=== PATIENT | female | born 1945 | race Caucasian/White ===

== ENCOUNTER → 2016-06-30 | Outpatient (CLI) | payer OTHER | END | disposition home or self-care (01) | LOC: C.LABSPEC 13:45 | PROVIDERS: ATTEND Dermatology | DX: B35.3 Tinea pedis (principal) ==

== ENCOUNTER → 2017-04-15 | Outpatient (CLI) | payer OTHER ==
--- NOTE | 2017-04-15 15:32 | MAMMOGRAPHY REPORT ---
BILATERAL DIGITAL SCREENING MAMMOGRAM WITH CAD: 04/15/2017 CLINICAL HISTORY: Routine screening. Patient has no complaints. TECHNIQUE: Current study was also evaluated with a Computer Aided Detection (CAD) system. Bilateral CC and MLO views were obtained. COMPARISON: Comparison is made to exams dated: 03/16/2016 mammogram, 03/13/2015 mammogram, 4 mammogram, 02/28/2013 mammogram, 02/28/2012 mammogram, and 10/19/2011 mammogram - [facility]. BREAST COMPOSITION: There are scattered areas of fibroglandular density in both breasts. FINDINGS: No suspicious masses, calcifications, or areas of architectural distortion are noted in ei ther breast. There has been no significant interval change compared to prior exams. IMPRESSION: ACR BI-RADS CATEGORY 1: NEGATIVE There is no mammographic evidence of malignancy. A 1 year screening mammogram is recommended. The pa tient will receive written notification of the results. Approximately 10% of breast cancers are not detected with mammography. A negative mammographic report should not delay biopsy if a clinically suggestive mass is present. Arina Judge M.D. ah/:04/15/2017 14:40:22 Health Insurance Adjuster: Aliza MARTINEZ(Paul)([place]), [facility] letter sent: Normal 1/2 BI-RADS Code: ACR BI-RADS Category 1: Negative
== END | disposition home or self-care (01) ==
LOC: C.MAMM 13:29
PROVIDERS: ATTEND Internal Medicine
DX: Z12.31 Encounter for screening mammogram for malignant neoplasm of breast (principal)

== ENCOUNTER 2017-07-14 19:55 | Inpatient (IN) | payer OTHER ==
[~2017-07-14] VITALS: Ht 152.4 cm; Wt 55.4 kg
[2017-07-14] MEDS ORDERED: IBUPROFEN 200 MG TAB PO STA (20:48)
[2017-07-14] MEDS ORDERED: ACETAMINOPHEN 325 MG TAB PO ONE (21:00)
--- NOTE | 2017-07-14 21:14 | DIAGNOSTIC IMAGING REPORT ---
CHEST ONE VIEW PORTABLE CLINICAL HISTORY: Sepsis dyspnea COMPARISON STUDY: No previous studies for comparison. FINDINGS: Small left basilar parenchymal infiltrate. Minimal interstitial infiltrate right base. Lungs otherwise appear clear. Diaphragms are smooth. No significant cardiac enlargement. IMPRESSION: Small bibasilar parenchymal infiltrates. The above report was generated using voice recognition software. It may contain grammatical, syntax or spelling errors. Electronically signed by: Mane Beck M.D. 07/14/2017 9:13 PM Dictated Date/Time: 07/14/2017 9:12 PM
[2017-07-14] MEDS ORDERED: LEVAQUIN 750MG / 150ML D5W IV STA (21:17)
[2017-07-14 21:29] LABS: INR 0.9 (0.9-1.1); PTT PATIENT 24.9 SECONDS (21.0-31.0)
[2017-07-14] MEDS ORDERED: AMOX875T3 PO (21:35)
[2017-07-14] MEDS ORDERED: PARO1TAB27 PO (21:36)
[2017-07-14] MEDS ORDERED: MULT-506 PO (21:36)
[2017-07-14 21:40] LABS: ALBUMIN 3.3 gm/dl (3.4-5.0); ALT/SGPT 34 U/L (12-78); BLOOD UREA NITROGEN 14 mg/dl (7-18); CALCIUM 8.3 mg/dl (8.5-10.1); CARBON DIOXIDE 27 mmol/L (21-32); CREATININE 0.74 mg/dl (0.60-1.20); GLUCOSE 133 mg/dl (70-99); POTASSIUM 3.6 mmol/L (3.5-5.1); SODIUM 136 mmol/L (136-145)
[2017-07-14 21:45] LABS: ALKALINE PHOSPHATASE 69 U/L (45-117); AST/SGOT 28 U/L (15-37)
[2017-07-14 21:55] LABS: HEMATOCRIT 40.7 % (37-47); HEMOGLOBIN 13.5 g/dL (12.0-16.0); MEAN CORPUSCULAR HEMOGLOBIN 31.2 pg (25-34); MEAN CORPUSCULAR HGB CONC 33.2 g/dl (32-36); MEAN PLATELET VOLUME 9.8 fL (7.4-10.4); PLATELET COUNT 202 K/uL (130-400); RED CELL DISTRIBUTION WIDTH CV 12.8 % (11.5-14.5); RED CELL DISTRIBUTION WIDTH SD 44.3 fL (36.4-46.3); WHITE BLOOD COUNT 13.99 K/uL (4.8-10.8)
--- NOTE | 2017-07-14 22:11 | EMERGENCY ROOM VISIT NOTE ---
History Report prepared by David: Koko Alcazar Under the Supervision of: Dr. Blake Garza M.D. First contact with patient: 20:42 Chief Complaint: FLU LIKE SX Stated Complaint: FLU History of Present Illness The patient is a 71 year old female who presents to the Emergency Room with complaints of persistent flu-like symptoms since 1600 today. She states that she has been congested with a runny nose and cough for two days. She was seen by her PCP yesterday and prescribed Amoxicillin. She took the first dose at 1600 today and began to have body aches shortly after taking the medication. She reports a headache as well. She states the cough is causing chest tightness and shortness of breath. She thinks she might have been exposed to the flu while in the waiting room at her doctor's office. She notes a fever and took Tylenol at 1400 today. She denies any vomiting or rash. She denies any underlying medical problems. She is not normally on at home oxygen. She denies any urinary symptoms. Source of History: patient Onset: 1600 today Position: other (body) Quality: ache Timing: other (persistent) Associated Symptoms: + fevers, + headache, + cough, + chest pain (chest tightness), + SOB, No vomiting, No urinary symptoms, No rash Note: She notes runny nose and congestion. Review of Systems See HPI for pertinent positives & negatives. A total of 10 systems reviewed and were otherwise negative. Past Medical & Surgical Medical Problems: (1) ARDS (adult respiratory distress syndrome) (2) Pneumothorax Surgical Problems: (1) H/O tubal ligation Family History Cancer Diabetes mellitus Heart disease Hypertension Social History Smoking Status: Current Some Day Smoker Smokeless Tobacco Use: No Alcohol Use: none Drug Use: none Marital Status: single Housing Status: lives alone Occupation Status: unemployed Current/Historical Medications Scheduled Amoxicillin (Amoxil), 875 MG PO Q12 Multivitamin (Multivitamin), 1 TAB PO DAILY Paroxetine (Paxil), 20 MG PO DAILY Allergies Coded Allergies: No Known Allergies (Verified , 07/14/17) Physical Exam Vital Signs Date Time Temp Pulse Resp B/P (MAP) Pulse Ox O2 Delivery O2 Flow Rate FiO2 07/14/17 21:23 95 18 124/58 95 Nasal Cannula 2.0 07/14/17 20:53 95 Nasal Cannula 2.0 07/14/17 20:49 85 Room Air 3/22/18 20:49 95 Nasal Cannula 2.0 07/14/17 20:43 106 07/14/17 19:58 37.9 119 20 128/57 91 Room Air Physical Exam Constitutional: Vital signs reviewed. Eyes: Pupils are equal round reactive to light. Conjunctiva are noninjected. ENT: Pharynx is clear without erythema or exudate. Mucous membranes are moist. Neck supple without meningeal signs. Respiratory: Clear to auscultation bilaterally. Breath sounds are equal bilaterally. Cardiovascular: Tachycardic rate with normal rhythm. No rubs or gallops. Heart rate of 101. GI: Soft, nondistended and nontender. Bowel sounds are present. Musculoskeletal: No peripheral edema. No lower extremity tenderness. Integumentary: No cyanosis. Neurological: The patient is awake and alert. No focal deficits. Psychiatric: Normal affect. Medical Decision & Procedures ER Provider Diagnostic Interpretation: Radiology results as stated below per my review and the radiologist's interpretation: CHEST ONE VIEW PORTABLE CLINICAL HISTORY: Sepsis dyspnea COMPARISON STUDY: No previous studies for comparison. FINDINGS: Small left basilar parenchymal infiltrate. Minimal interstitial infiltrate right base. Lungs otherwise appear clear. Diaphragms are smooth. No significant cardiac enlargement. IMPRESSION: Small bibasilar parenchymal infiltrates. The above report was generated using voice recognition software. It may contain grammatical, syntax or spelling errors. Electronically signed by: Mane Beck M.D. 07/14/2017 9:13 PM Dictated Date/Time: 07/14/2017 9:12 PM Laboratory Results 07/14/17 21:02 Red Blood Count 4.33, Mean Corpuscular Volume 94.0, Mean Corpuscular Hemoglobin 31.2, Mean Corpuscular Hemoglobin Concent 33.2, Mean Platelet Volume 9.8 07/14/17 21:02 Test 07/14/17 20:48 07/14/17 21:02 07/14/17 21:20 White Blood Count 13.99 K/uL (4.8-10.8) Red Blood Count 4.33 M/uL (4.2-5.4) Hemoglobin 13.5 g/dL (12.0-16.0) Hematocrit 40.7 % (37-47) Mean Corpuscular Volume 94.0 fL (80-100) Mean Corpuscular Hemoglobin 31.2 pg (25-34) Mean Corpuscular Hemoglobin Concent 33.2 g/dl (32-36) Platelet Count 202 K/uL (130-400) Mean Platelet Volume 9.8 fL (7.4-10.4) RDW Standard Deviation 44.3 fL (36.4-46.3) RDW Coefficient of Variation 12.8 % (11.5-14.5) Prothrombin Time 9.4 SECONDS (9.0-12.0) Prothromb Time International Ratio 0.9 (0.9-1.1) Activated Partial Thromboplast Time 24.9 SECONDS (21.0-31.0) Partial Thromboplastin Ratio 1.0 Anion Gap 5.0 mmol/L (3-11) Est Creatinine Clear Calc Drug Dose 52.9 ml/min Estimated GFR () 93.2 Estimated GFR (Non- 80.4 BUN/Creatinine Ratio 18.3 (10-20) Calcium Level 8.3 mg/dl (8.5-10.1) Total Bilirubin 0.5 mg/dl (0.2-1) Aspartate Amino Transf (AST/SGOT) 28 U/L (15-37) Alanine Aminotransferase (ALT/SGPT) 34 U/L (12-78) Alkaline Phosphatase 69 U/L (45-117) Troponin I < 0.015 ng/ml (0-0.045) Total Protein 7.0 gm/dl (6.4-8.2) Albumin 3.3 gm/dl (3.4-5.0) Globulin 3.7 gm/dl (2.5-4.0) Albumin/Globulin Ratio 0.9 (0.9-2) Urine Color YELLOW Urine Appearance CLEAR (CLEAR) Urine pH 8.5 (4.5-7.5) Urine Specific [place] 1.023 (1.000-1.030) Urine Protein NEG (NEG) Urine Glucose (UA) NEG (NEG) Urine Ketones TRACE (NEG) Urine Occult Blood NEG (NEG) Urine Nitrite NEG (NEG) Urine Bilirubin NEG (NEG) Urine Urobilinogen NEG (NEG) Urine Leukocyte Esterase NEG (NEG) Urine WBC (Auto) 1-5 /hpf (0-5) Urine RBC (Auto) 0-4 /hpf (0-4) Urine Hyaline Casts (Auto) 0 /lpf (0-5) Urine Epithelial Cells (Auto) 10-20 /lpf (0-5) Urine Bacteria (Auto) NEG (NEG) Laboratory results as reviewed by me. Medications Administered Medications (Trade) Dose Ordered Sig/Thad Route Start Time Stop Time Status Last Admin Dose Admin Acetaminophen (Tylenol Tab) 650 mg ONE ONCE PO 07/14/17 21:00 07/14/17 21:01 DC 07/14/17 20:58 650 MG Ibuprofen (Advil Tab) 400 mg NOW STAT PO 07/14/17 20:48 07/14/17 20:50 DC 07/14/17 20:57 400 MG Levofloxacin (Levaquin / D5W) 750 mg NOW STAT IV 07/14/17 21:17 07/14/17 21:18 DC 07/14/17 21:30 750 MG ECG Per My Interpretation Indication: SOB/dyspnea Rate (beats per minute): 108 Rhythm: sinus tachycardia Findings: no ectopy (No PVC), other (No ST elevation) ED Course 2042: The patient was evaluated in room C112B. A complete history and physical exam was performed. 2047: Ordered Ibuprofen 400 mg PO 2099: Ordered Tylenol 650 mg PO 2116: Ordered Levofloxacin 750 mg IV 2117: I reassessed the patient at this time. She is resting comfortably. I discussed the results and treatment plan with the patient. I answered all pertaining questions that she had. She expressed understanding and verbalized agreement. The patient will be further evaluated. 2126: I spoke with Dr. Burgess, [facility] hospitalist. We discussed the patient's case. The patient will be evaluated by the [facility] for further management. Medical Decision This is a 71-year-old female who presents with flulike symptoms. Differential diagnosis includes influenza, pneumonia, bronchitis, viral syndrome, pleural effusion. I did perform a limited focused review of portions of the patient's old chart on the electronic medical record. The patient has had no recent pertinent visits to this hospital. I did evaluate the patient as noted above. Patient is presenting with flulike symptoms today. She did have a head cold 2 days prior to think she was exposed to flu at her doctor's office yesterday. She was just started on amoxicillin today. IV access was established. The patient was placed on a continuous [employer]. Her O2 saturation is 85% on room air. She was placed on 2 L of oxygen via nasal cannula and her O2 saturation went up to 95%. She did feel better. I did order and personally review the patient's 12-lead EKG and chest x -ray as described above. Chest x-ray demonstrates bibasilar infiltrates. Blood cultures were ordered. I did treat the patient with Levaquin IV. She was also given Tylenol and Motrin for her fever. I did order and review the patient's blood work as noted in the electronic medical record. Her white blood cell count is elevated. Lactic acid is not elevated. I did order a PCR influenza which is currently pending. I did discuss the case with the hospitalist service and case manager specialist. Medication Reconcilliation Current Medication List: was personally reviewed by me Blood Pressure Screening Patient's blood pressure: Elevated blood pressure Blood pressure disposition: Elevated BP felt to be situational Consults Time Called: 2120 Consulting Physician: MISSY Dee hospitalist Returned Call: 2126 I spoke with MISSY Dee hospitalist. We discussed the patient's case. The patient will be evaluated by the [facility] for further management. Impression Primary Impression: Pneumonia of both lower lobes Additional Impression: Hypoxia Scribe Attestation The scribe's documentation has been prepared under my direct and personally reviewed by me in its entirety. I confirm that the note above accurately reflects all work, treatment, procedures, and medical decision making performed by me. Departure Information Dispostion Being Evaluated By Hospitalist Referrals Morales Russo M.D. (PCP) Patient Instructions My [facility] Problem Qualifiers Primary Impression: Pneumonia of both lower lobes Pneumonia type: due to unspecified organism Qualified Codes: J18.1 - Lobar pneumonia, unspecified organism
--- NOTE | 2017-07-14 22:12 | History and Physical ---
History & Physical Date & Time of Service: Jul 14, 2017 at 22:03 Chief Complaint: FLU Primary Care Physician: Morales Russo M.D. History of Present Illness Source: patient, hospital records 71 year old female with history of PNA and ARDS presents to the ER with cough and chest tightness. She has had a head hold for the last 5-6 days. She went to see her PCP yesterday, who prescribed amoxicillin for sinusitis. Patient just started the regimen and has only taken one dose but was experiencing nausea with it. Her cough worsened today and she had fevers and chills, felt myalgias and fatigued and was experiencing chest tightness. She has been taking ibuprofen for fever and aches and pains. She came to the ER concerned, given her previous history of ARDS. She denies sore throat, nasal congestion, rhinorrhea. Patient did not particularly feel SOB, but admits to resting the entire day. No CP, palpitations, heart racing. No N/V although appetite has been diminished x 2 days. No issues voiding or changes in BM. No cardiac history or diabetes. No h/o asthma. Patient is current smoker 1 pack/week, although she used to smoke more heavily previously. She did not get her influenza vaccine this year. In the ER patient was noted to be hypoxic. Labs revealed leukocytosis. Patient found to positive for influenza. CXR showed bilateral PNA. ROS unremarkable except as above. Past Medical/Surgical History Medical Problems: (1) ARDS (adult respiratory distress syndrome) (2) Pneumothorax Surgical Problems: (1) H/O tubal ligation Family History Cancer Diabetes mellitus Heart disease Hypertension unremarkable Social History Smoking Status: Current Some Day Smoker Smokeless Tobacco Use: No Alcohol Use: socially Drug Use: none Immunizations History of Influenza Vaccine: Unknown History of Tetanus Vaccine?: Unknown History of Pneumococcal: Unknown History of Hepatitis B Vaccine: Unknown Allergies Coded Allergies: No Known Allergies (Verified , 07/14/17) Home Medications Scheduled Levofloxacin (Levaquin), 500 MG PO DAILY Multivitamin (Multivitamin), 1 TAB PO DAILY Oseltamivir Phosphate (Tamiflu), 1 CAP PO BID Paroxetine (Paxil), 20 MG PO DAILY Physical Exam Vital Signs Date Time Temp Pulse Resp B/P (MAP) Pulse Ox O2 Delivery O2 Flow Rate FiO2 07/14/17 21:23 95 18 124/58 95 Nasal Cannula 2.0 07/14/17 20:53 95 Nasal Cannula 2.0 07/14/17 20:49 85 Room Air 07/14/17 20:49 95 Nasal Cannula 2.0 07/14/17 20:43 106 07/14/17 19:58 37.9 119 20 128/57 91 Room Air General Appearance: WD/WN, no apparent distress, + pertinent finding (NC in situ) Head: normocephalic, atraumatic Eyes: normal inspection, sclerae normal ENT: hearing grossly normal, pharynx normal Neck: supple, no adenopathy Respiratory/Chest: normal breath sounds, no respiratory distress, no accessory muscle use Cardiovascular: regular rate, rhythm, no murmur, normal peripheral pulses Abdomen/GI: normal bowel sounds, non tender, soft Back: normal inspection, no CVA tenderness Extremities/Musculoskelatal: no calf tenderness, no pedal edema Neurologic/Psych: alert, normal mood/affect, oriented x 3 Skin: normal color, warm/dry, no rash Diagnostics Laboratory Results Results Past 24 Hours Test 07/14/17 20:48 07/14/17 21:02 07/14/17 21:20 Range/Units White Blood Count 13.99 4.8-10.8 K/uL Red Blood Count 4.33 4.2-5.4 M/uL Hemoglobin 13.5 12.0-16.0 g/dL Hematocrit 40.7 37-47 % Mean Corpuscular Volume 94.0 80-100 fL Mean Corpuscular Hemoglobin 31.2 25-34 pg Mean Corpuscular Hemoglobin Concent 33.2 32-36 g/dl Platelet Count 202 130-400 K/uL Mean Platelet Volume 9.8 7.4-10.4 fL RDW Standard Deviation 44.3 36.4-46.3 fL RDW Coefficient of Variation 12.8 11.5-14.5 % Prothrombin Time 9.4 9.0-12.0 SECONDS Prothromb Time International Ratio 0.9 0.9-1.1 Activated Partial Thromboplast Time 24.9 21.0-31.0 SECONDS Partial Thromboplastin Ratio 1.0 Sodium Level 136 136-145 mmol/L Potassium Level 3.6 3.5-5.1 mmol/L Chloride Level 103 98-107 mmol/L Carbon Dioxide Level 27 21-32 mmol/L Anion Gap 5.0 3-11 mmol/L Blood Urea Nitrogen 14 7-18 mg/dl Creatinine 0.74 0.60-1.20 mg/dl Est Creatinine Clear Calc Drug Dose 52.9 ml/min Estimated GFR () 93.2 Estimated GFR (Non- 80.4 BUN/Creatinine Ratio 18.3 10-20 Random Glucose 133 70-99 mg/dl Calcium Level 8.3 8.5-10.1 mg/dl Total Bilirubin 0.5 0.2-1 mg/dl Aspartate Amino Transf (AST/SGOT) 28 15-37 U/L Alanine Aminotransferase (ALT/SGPT) 34 12-78 U/L Alkaline Phosphatase 69 45-117 U/L Troponin I < 0.015 0-0.045 ng/ml Total Protein 7.0 6.4-8.2 gm/dl Albumin 3.3 3.4-5.0 gm/dl Globulin 3.7 2.5-4.0 gm/dl Albumin/Globulin Ratio 0.9 0.9-2 Urine Color YELLOW Urine Appearance CLEAR CLEAR Urine pH 8.5 4.5-7.5 Urine Specific [place] 1.023 1.000-1.030 Urine Protein NEG NEG Urine Glucose (UA) NEG NEG Urine Ketones TRACE NEG Urine Occult Blood NEG NEG Urine Nitrite NEG NEG Urine Bilirubin NEG NEG Urine Urobilinogen NEG NEG Urine Leukocyte Esterase NEG NEG Urine WBC (Auto) 1-5 0-5 /hpf Urine RBC (Auto) 0-4 0-4 /hpf Urine Hyaline Casts (Auto) 0 0-5 /lpf Urine Epithelial Cells (Auto) 10-20 0-5 /lpf Urine Bacteria (Auto) NEG NEG Microbiology Results 07/14/17 Blood Culture, Received Pending 07/14/17 Blood Culture, Received Pending Diagnostic Radiology CHEST ONE VIEW PORTABLE CLINICAL HISTORY: Sepsis dyspnea COMPARISON STUDY: No previous studies for comparison. FINDINGS: Small left basilar parenchymal infiltrate. Minimal interstitial infiltrate right base. Lungs otherwise appear clear. Diaphragms are smooth. No significant cardiac enlargement. IMPRESSION: Small bibasilar parenchymal infiltrates. Impression Assessment and Plan 71 year old female with history of PNA and ARDS presents to the ER with cough and chest tightness. In the ER patient was noted to be hypoxic. Labs revealed leukocytosis. Patient found to positive for influenza. CXR showed bilateral PNA. Acute hypoxic respiratory failure secondary to pulmonary infection - Supplemental O2, wean as tolerated keeping sats >92% - Treat underlying cause Bilateral PNA - CXR shows small bibasilar parenchymal infiltrates - BCx pending - Empiric antibiotics commenced: levofloxacin and ceftriaxone - Tylenol PRN fevers Influenza - Tamiflu 75mg BID x 5 days Anxiety/depression - Continue paroxetine Tobacco abuse - Advised for cessation - Nicotine patch ordered PRN VTE ppx - SCDs Full code Attending addendum: I have physically seen this patient, have supervised the medical residents activities, and agree with the H&P unless as otherwise noted. Assessment and Plan: Acute respiratory failure with hypoxia/bilateral lower lobe pneumonia/influenza B-- Ceftriaxone 1 g IV daily Levofloxacin 500 mg IV every 24 hours Solu-Medrol 40 mg IV every 8 hours Guaifenesin extended release 600 mg by mouth twice a day Xopenex/Atovent nebs q6hwa and q2h prn Nasal cannula 2 L of oxygen titrating to keep pulse ox greater than or equal to 92%. Sputum Gram stain and culture. Tamiflu 75 mg p.o. twice daily. Advanced Directives Existing Advance Directive: Yes Existing Living Will: Yes Existing Power of Surgical Supplies Sterilizer: Yes (Daughter Meena) Resuscitation Status Full code VTE Prophylaxis Will order VTE Prophylaxis: Yes Social Service Consult None Apply Resident Tracking Resident Involvement: Resident Care Provided Care Provided: Adult Hospital Medicine
[2017-07-14 22:33] LABS: BASO % 0.1 %; BASO ABS # 0.02 K/uL (0-0.2); EOS % 0.1 %; EOS ABS # 0.01 K/uL (0-0.5); IG# 0.03 K/uL (0.00-0.02); LYMPH % 6.8 %; LYMPH ABS # 0.95 K/uL (1.2-3.4); MONO % 6.7 %; MONO ABS # 0.94 K/uL (0.11-0.59); NEUT % 86.1 %; NEUT ABS # 12.04 K/uL (1.4-6.5)
[2017-07-14] MEDS ORDERED: ONDANSETRON INJ 2 MG/ML 2 ML VIAL IV PRN (22:45)
[2017-07-14] MEDS ORDERED: NITROGLYCERIN 0.4 MG SL PER TAB CHARGE SL PRN (22:45)
[2017-07-14] MEDS ORDERED: ALUMINUM/MAGNESIUM/SIMETH (MAALOX MAX) 30 ML UDC PO PRN (22:45)
[2017-07-14] MEDS ORDERED: MAGNESIUM HYDROXIDE SUSP 30 ML UDC PO PRN (22:45)
[2017-07-14] MEDS ORDERED: POLYETHYLENE (MIRALAX) 17 GM PACK PO PRN (22:45)
[2017-07-14 23:49] VITALS: O2SAT 96
[2017-07-15] VITALS: Ht 152.4 cm; Wt 55.4 kg
[2017-07-15 00:20] LABS: INFLUENZA A PCR Neg for Influ A (NEG); INFLUENZA B PCR POS for Influ B (NEG)
[2017-07-15 00:49] VITALS: BP 121/65; PULSE 95; TEMP 36.6; O2SAT 92
[2017-07-15] MEDS: ACETAMINOPHEN 325 MG TAB PO PRN ×3 (00:54→12:36)
[2017-07-15] MEDS ORDERED: CEFTRIAXONE SOD INJ 1 GM in DEXTROSE 5% ADD-VANTAGE 50ML 50 ML IV SCH (01:00)
[2017-07-15] MEDS ORDERED: SODIUM CHLORIDE 0.9% 1000ML 1,000 ML IV SCH (01:00)
[2017-07-15 03:00] VITALS: BP 103/59; PULSE 83; TEMP 36.7; O2SAT 93
[2017-07-15] MEDS ORDERED: INFLUENZA VACCINE HIGH DOSE 65+ 0.5 ML SYR IM. ONE (03:15)
[2017-07-15] MEDS ORDERED: INFLUENZA ADMINISTRATION CHARGE ONE (03:15)
[2017-07-15 06:19] LABS: BASO % 0.1 %; BASO ABS # 0.02 K/uL (0-0.2); EOS % 0.2 %; EOS ABS # 0.03 K/uL (0-0.5); HEMATOCRIT 35.6 % (37-47); HEMOGLOBIN 12.1 g/dL (12.0-16.0); IG# 0.04 K/uL (0.00-0.02); LYMPH % 12.5 %; LYMPH ABS # 1.87 K/uL (1.2-3.4); MEAN CELL VOLUME 93.2 fL (80-100); MEAN CORPUSCULAR HEMOGLOBIN 31.7 pg (25-34); MEAN PLATELET VOLUME 9.6 fL (7.4-10.4); MONO % 6.5 %; MONO ABS # 0.97 K/uL (0.11-0.59); NEUT % 80.4 %; NEUT ABS # 11.99 K/uL (1.4-6.5); PLATELET COUNT 167 K/uL (130-400); RED CELL DISTRIBUTION WIDTH CV 13.2 % (11.5-14.5); WHITE BLOOD COUNT 14.92 K/uL (4.8-10.8)
[2017-07-15 07:02] LABS: CALCIUM 8.3 mg/dl (8.5-10.1); CREATININE 0.75 mg/dl (0.60-1.20)
[2017-07-15 07:25] VITALS: BP 111/56; PULSE 85; TEMP 36.9; O2SAT 95
[2017-07-15] MEDS ORDERED: OSELTAMIVIR PHOSPHATE 75 MG CAP PO SCH (09:00)
[2017-07-15] MEDS ORDERED: MULTIVITAMIN TAB PO SCH (09:00)
[2017-07-15] MEDS ORDERED: PAROXETINE 20 MG TAB PO SCH (09:00)
[2017-07-15] MEDS ORDERED: NICOTINE 7 MG/24 HR TDSY TD SCH (09:00)
[2017-07-15] MEDS ORDERED: COUGH DROP (SUGAR FREE) LOZ 24 LOZ/1 BOX LOZ ONE (10:57)
[2017-07-15 10:59] VITALS: BP 111/56; PULSE 85; TEMP 36.9; O2SAT 95
[2017-07-15 11:29] VITALS: BP 111/52; PULSE 81; TEMP 36.7; O2SAT 94
[2017-07-15] MEDS ORDERED: OSEL75CA23 PO (11:52)
[2017-07-15] MEDS ORDERED: LEVO-366 PO (11:52)
--- NOTE | 2017-07-15 11:56 | Discharge Instructions ---
Discharge Instructions Date of Service Jul 15, 2017. Admission Reason for Admission: Pneumonia Of Both Lower Lobes Discharge Discharge Diagnosis / Problem: pneumonia, influenza Discharge Goals Goal(s): Decrease discomfort, Improve function Activity Recommendations Activity Limitations: resume your previous activity . Instructions / Follow-Up Instructions / Follow-Up You were admitted after you had presented with chest tightness, bodyaches and chills. you were found to be positive for influenza and your chest Xray had shown pneumonia in both lungs. Recommendations: - Please use Tamiflu 75 mg twice daily for 5 days for pneumonia - Use Levaquin 500 mg daily for 7 days for pneumonia - We encourage you to quit smoking- this is the right time to quit . If you need help , please discuss with your PCP Follow up with your PCP in about a week Current Hospital Diet Patient's current hospital diet: Regular Diet Discharge Diet Recommended Diet: Regular Diet Pending Studies Studies pending at discharge: no Medical Emergencies . Who to Call and When: Medical Emergencies: If at any time you feel your situation is an emergency, please call 911 immediately. . Non-Emergent Contact Non-Emergency issues call your: Primary Care Provider . . "Provider Documentation" section prepared by Zahida Kim. . Resident Tracking Resident Involvement: Resident Care Provided Care Provided: Adult Hospital Medicine
--- NOTE | 2017-07-15 13:30 | Discharge Summary ---
Discharge Summary Date of Service Jul 15, 2017. Discharge Summary Admission Date: Jul 14, 2017 at 23:02 Discharge Date: Jul 15, 2017 Discharge Disposition: Home Principal Diagnosis: Pneumonia, influenza B Immunizations: Have You Had Influenza Vaccine: Unknown History of Tetanus Vaccine?: Unknown History of Pneumococcal: Unknown History of Hepatitis B Vaccine: Unknown Medication Reconciliation New Medications: Levofloxacin (Levaquin) 500 Mg Tab 500 MG PO DAILY for 7 Days, TAB Oseltamivir Phosphate (Tamiflu) 75 Mg Cap 1 CAP PO BID for 5 Days, #10 CAP Continued Medications: Multivitamin (Multivitamin) Tab 1 TAB PO DAILY, TAB Paroxetine (Paxil) 20 Mg Tab 20 MG PO DAILY, TAB Discontinued Medications: Amoxicillin (Amoxil) 875 Mg Tab 875 MG PO Q12, TAB Discharge Exam Review of Systems: Constitutional: No fever, No chills Eyes: No worsening of vision ENT: No hearing loss Respiratory: No cough, No sputum Cardiovascular: No chest pain Abdomen: No pain, No nausea, No vomiting Musculoskeletal: No joint pain Genitourinary - Female: No dysuria Neurologic: No memory loss, No paralysis Psychiatric: No depression symptoms Endocrine: No fatigue Hematologic / Lymphatic: No abnormal bleeding/bruising Physical Exam: General Appearance: WD/WN, no apparent distress Eyes: normal inspection ENT: hearing grossly normal Neck: supple Respiratory/Chest: chest non-tender, lungs clear, normal breath sounds, no respiratory distress, no accessory muscle use Cardiovascular: regular rate, rhythm Abdomen / GI: normal bowel sounds, non tender, soft Extremities: no pedal edema Neurologic/Psychiatric: alert, normal mood/affect, oriented x 3 Skin: normal color Hospital Course 71-year-old female with a past medical history of pneumonia, anxiety/depression , ARDS present in the ER with a cough and chest tightness. She was seen at her PCPs office for head cold and was prescribed Augmentin but she presented to the ER because of fevers/chills, myalgias and fatigue. Her chest x-ray was suggestive of bibasilar pneumonia and she was tested positive for influenza B. She was started on Levaquin and ceftriaxone and Tamiflu. she was discharged today in stable condition after she stated that her symptoms have greatly improved. She was discharged on Tamiflu 75 mg twice daily for 5 days and Levaquin 500 mg daily for 7 days. She is a smoker and currently smokes a pack of cigarettes per week, she was counseled about smoking cessation and recommended to quit smoking. she is agreeable to the plan and will follow up with her PCP . Resident Physician Supervision Note: I interviewed and examined the patient. Discussed with Dr. Kim and agree with findings and plan as documented in the note. Any exceptions or clarifications are listed here: None Documented By: Jonathan Marin feeling better willing to try to stop smoking discussed extensively vitals noted nad breathing unlabored no pallor or icterus flu, pneumonia - improving, safe for home tobacco abuse - counselled on quitting, is going to try - wants to try cold turkey Total Time Spent: Greater than 30 minutes This includes examination of the patient, discharge planning, medication reconciliation, and communication with other providers. Discharge Instructions Please refer to the electronic Patient Visit Report (Discharge Instructions) for additional information. Follow-Up Follow up with PCP in about a week Additional Copies To Morales Russo M.D. Resident Tracking Resident Involvement: Resident Care Provided Care Provided: Adult Hospital Medicine
[2017-07-15] MEDS ORDERED: LEVOFLOXACIN / D5W 750 MG in PREMIXED IN D5W 150 ML IV SCH (21:00)
== END 2017-07-15 14:00 | disposition home or self-care (01) | DRG 193 ==
LOC: C.EDB 19:56 → C.MED 23:02 → ENRESERV 23:33
PROVIDERS: ADMIT Hospitalist; ATTEND Family Medicine
DX: J10.00 Influenza due to other identified influenza virus with unspecified type of pneumonia (principal); J96.01 Acute respiratory failure with hypoxia; J18.9 Pneumonia, unspecified organism; F41.9 Anxiety disorder, unspecified; F32.9 Major depressive disorder, single episode, unspecified; F17.210 Nicotine dependence, cigarettes, uncomplicated; Z79.899 Other long term (current) drug therapy; Z82.49 Family history of ischemic heart disease and other diseases of the circulatory system; Z83.3 Family history of diabetes mellitus

== ENCOUNTER → 2017-11-15 | Outpatient (CLI) | payer OTHER ==
[~2017-11-15] MED LIST: MULT-506 PO; PARO1TAB27 PO
[2017-11-15 13:12] LABS: HEMOGLOBIN A1C 6.1 % (4.5-5.6)
== END | disposition home or self-care (01) ==
LOC: C.LABBFT 08:11
PROVIDERS: ATTEND Internal Medicine
DX: E78.5 Hyperlipidemia, unspecified (principal); R73.03 Prediabetes; M85.80 Other specified disorders of bone density and structure, unspecified site; M89.9 Disorder of bone, unspecified